=== PATIENT | male | born 1970 ===

== ENCOUNTER 2017-09-28 15:37 | Emergency (ER) | payer OTHER ==
[2017-09-28 16:08] VITALS: BP 120/76
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
== END 2017-09-28 16:48 | disposition home or self-care (01) ==
LOC: UCEAST 15:37
DX: L23.7 Allergic contact dermatitis due to plants, except food (principal); F17.210 Nicotine dependence, cigarettes, uncomplicated
CPT/HCPCS: 99212; G0463